=== PATIENT | male | born 1960 | race American Indian/Alaskan Native ===

== ENCOUNTER 2016-04-14 08:36 | Observation (INO) | payer MEDICARE ==
[2016-04-13 09:14] LABS: Hematocrit 37.6 % (35.5-45.6); Hemoglobin 12.3 gm/dl (11.8-15.2); Mean Corpuscular HGB Conc 33 % (32-34); Mean Corpuscular Hemoglobin 30 pg (28-32); Mean Corpuscular Volume 90 fl (84-94); Platelet Count 165 K/mm3 (140-440); Red Blood Count 4.16 M/mm3 (3.65-5.03); Red Cell Distribution Width 16.4 % (13.2-15.2); White Blood Count 7.7 K/mm3 (4.5-11.0)
[2016-04-13 09:24] LABS: INR 0.99 (0.87-1.13)
[2016-04-14] MEDS ORDERED: SUBLIMAZE IV ONE (10:00)
[2016-04-14] MEDS ORDERED: VERSED IV ONE (10:00)
[2016-04-14] MEDS ORDERED: NACL 0.9% 500 ML 500 ML ONE (10:01)
[2016-04-14] MEDS ORDERED: NACL 0.9% 500 ML 500 ML IV SCH (11:00)
--- NOTE | 2016-04-14 11:18 | Procedure Note ---
Date of procedure: 04/14/16 Pre-op diagnosis: Abn. renal fxn. Post-op diagnosis: same Procedure: renal bx. Anesthesia: local Surgeon: SUSAN RITCHIE Estimated blood loss: none Specimen disposition: to lab Condition: stable Disposition: floor
[2016-04-14] MEDS ORDERED: D50W (25GM) IV PRN (14:06)
[2016-04-14] MEDS ORDERED: MILK OF MAGNESIA PO PRN (14:06)
[2016-04-14] MEDS ORDERED: TYLENOL PO PRN (14:06)
[2016-04-14] MEDS ORDERED: ZOFRAN IV PRN (14:06)
--- NOTE | 2016-04-14 14:54 | History and Physical Report ---
History of Present Illness Date of examination: 04/14/16 Date of admission: 04/14/16 14:06 Chief complaint: Patient is status post kidney biopsy History of present illness: 55-year-old Mr. Bauer had a left kidney biopsy and the hospitalist was asked to admit the patient for overnight observation He is awake and alert. Not in any distress and he offers no specific complaints at this time. He denies any pain from the procedure Past History Past Medical History: arthritis (rheumatoid arthritis), diabetes, heart failure , hypertension, renal failure, other (on a clear back pain) Past Surgical History: appendectomy Social history: smoking Family history: CAD, diabetes, hypertension Medications and Allergies Allergies Allergy/AdvReac Type Severity Reaction Status Date / Time ASHISH Inhibitors Allergy Swelling Verified 04/14/16 10:03 Home Medications Medication Instructions Recorded Confirmed Last Taken Type Allopurinol [Allopurinol] 1.5 tab PO DAILY 04/14/16 04/14/16 04/14/16 07:30 History 1.5tab Carvedilol [Coreg] 25 mg PO BID 04/14/16 04/14/16 04/14/16 07:30 History Furosemide [Furosemide] 40 mg PO DAILY 04/14/16 04/14/16 04/14/16 07:30 History 40mg Gabapentin [Gabapentin] 600 mg PO TID 04/14/16 04/14/16 04/14/16 07:30 History 600mg Hydroxychloroquine Sulfate 200 mg PO DAILY 04/14/16 04/14/16 04/14/16 07:30 History [Hydroxychloroquine Sulfate] 200mg Insulin Glargine,Hum.rec.anlog 15 units SQ HS 04/14/16 04/14/16 04/13/16 20:00 History [Lantus Solostar] 15units Insulin Regular, Human [HumuLIN R] 6 - 10 units SQ TID 04/14/16 04/14/16 18:00 History 16units Isosorb Dinit/Hydralazine HCl 1 tab PO TID 04/14/16 04/14/16 04/14/16 07:30 History [Bidil Tablet] 1 tab Metolazone [Metolazone] 10 mg PO BID 04/14/16 04/14/16 04/14/16 07:30 History 10mg glipiZIDE [Glipizide] 10 mg PO BID 04/14/16 04/14/16 04/14/16 07:30 History 10mg Active Meds: Active Medications Acetaminophen (Tylenol) 650 mg PO Q4H PRN PRN Reason: Pain MILD(1-3)/Fever >100.5/GUSTAFSON Bisacodyl (Dulcolax) 10 mg ND QDAY PRN PRN Reason: Constipation unrelieved by MOM Dextrose (D50w (25gm)) 50 ml IV PRN PRN PRN Reason: Hypoglycemia Insulin Aspart (Novolog) 0 units SUB-Q ACHS [facility] PRN Reason: Protocol Magnesium Hydroxide (Milk Of Magnesia) 30 ml PO Q4H PRN PRN Reason: Constipation Ondansetron HCl (Zofran) 4 mg IV Q8H PRN PRN Reason: N/V unrelieved by Reglan Oxycodone/Acetaminophen (Percocet 5/325) 1 tab PO Q6H PRN PRN Reason: Pain, Moderate (4-6) Review of Systems Constitutional: no weight loss, no weight gain, no fever, no chills Cardiovascular: high blood pressure, no chest pain, no orthopnea, no palpitations, no syncope, no lightheadedness, no paroxysmal nocturnal dyspnea Respiratory: no cough, no hemoptysis, no shortness of breath Gastrointestinal: no abdominal pain, no nausea, no vomiting, no diarrhea, no constipation, no melena Genitourinary Male: urinary frequency, no dysuria, no hematuria, no urinary hesitancy, no incontinence Musculoskeletal: low back pain, arthritis Integumentary: no rash, no pruritis Neurological: no seizures, no syncope Psychiatric: no anxiety, no depression Exam - Constitutional Vitals: Temp Pulse Resp BP Pulse Ox 98.1 F 86 20 118/57 94 04/14/16 11:25 04/14/16 14:00 04/14/16 14:00 04/14/16 14:00 04/14/16 14:00 General appearance: Present: no acute distress, obese - EENT Eyes: Present: PERRL, EOM intact ENT: hearing intact, clear oral mucosa, no thrush - Neck Neck: Present: supple, normal ROM. Absent: masses or JVD - Respiratory Respiratory effort: normal Respiratory: bilateral: CTA - Cardiovascular Rhythm: regular Heart Sounds: Present: S1 & S2 - Extremities Extremities: No edema - Abdominal General gastrointestinal: Present: soft, non-tender. Absent: hepatomegaly, splenomegaly - Rectal Rectal Exam: deferred - Integumentary Integumentary: Present: clear - Musculoskeletal Musculoskeletal: strength equal bilaterally - Psychiatric Psychiatric: appropriate mood/affect - Neurologic Neurologic: CNII-XII intact, no focal deficits Results - Labs CBC & Chem 7: 04/13/16 08:56 Labs: Abnormal lab results 04/14/16 Range/Units 12:37 POC Glucose 120 H (70-105) Assessment and Plan - Patient Problems (1) Chronic kidney disease Current Visit: Yes Status: Chronic Qualifiers: Chronic kidney disease stage: unspecified stage Qualified Code(s): N18.9 - Chronic kidney disease, unspecified Plan to address problem: Patient stage of chronic kidney disease is not known Unfortunately there are no lab results in the computer or in the chart Would continue his home medications Nephrology consult on board Offered nephrotoxins (2) Hypertension Current Visit: Yes Status: Chronic Qualifiers: Hypertension type: H Plan to address problem: Continue home medications Pressure is well controlled (3) Type 2 diabetes mellitus Current Visit: Yes Status: Acute Qualifiers: Diabetes mellitus complication status: with kidney complications Diabetes mellitus complication detail: D Diabetic retinopathy severity: D Proliferative retinopathy type: P Diabetes mellitus macular edema: D Diabetes mellitus detention insulin use: with detention use Laterality: L Chronic kidney disease stage: C Plan to address problem: Continue home insulin both basal and regular (4) Rheumatoid arthritis Current Visit: Yes Status: Chronic Qualifiers: Rheumatoid arthritis location: R Rheumatoid factor presence: R Laterality : L Plan to address problem: Continue Plaquenil (5) History of congestive heart failure Current Visit: Yes Status: Chronic Plan to address problem: Details not known at this time Fluid restriction Continue beta enzo and BiDil
[2016-04-14] MEDS ORDERED: DULCOLAX PR PRN (15:00)
[2016-04-14] MEDS ORDERED: PERCOCET 5/325 ONE (15:05)
[2016-04-14] MEDS: PERCOCET 5/325 PO PRN ×2 (15:08→23:12)
[2016-04-14] MEDS: NOVOLOG SUB-Q SCH ×2 (17:57→23:00)
--- NOTE | 2016-04-14 18:16 | Consultation ---
History of Present Illness - Reason for Consult Consult date: 04/14/16 chronic renal failure - History of Present Illness Mr. Bauer is a 55yo admitted for [place] kidney biopsy. He is seen s/p procedure. At present he has no complaints. He denies flank pain. He has not yet voided. Past History Past Medical History: arthritis (rheumatoid arthritis), diabetes, heart failure , hypertension, renal failure Past Surgical History: appendectomy Social history: smoking Family history: CAD, diabetes, hypertension Medications and Allergies Allergies Allergy/AdvReac Type Severity Reaction Status Date / Time ASHISH Inhibitors Allergy Swelling Verified 04/14/16 10:03 Home Medications Medication Instructions Recorded Confirmed Last Taken Type Allopurinol [Allopurinol] 1.5 tab PO DAILY 04/14/16 04/14/16 04/14/16 07:30 History 1.5tab Carvedilol [Coreg] 25 mg PO BID 04/14/16 04/14/16 04/14/16 07:30 History Furosemide [Furosemide] 40 mg PO DAILY 04/14/16 04/14/16 04/14/16 07:30 History 40mg Gabapentin [Gabapentin] 600 mg PO TID 04/14/16 04/14/16 04/14/16 07:30 History 600mg Hydroxychloroquine Sulfate 200 mg PO DAILY 04/14/16 04/14/16 04/14/16 07:30 History [Hydroxychloroquine Sulfate] 200mg Insulin Glargine,Hum.rec.anlog 15 units SQ HS 04/14/16 04/14/16 04/13/16 20:00 History [Lantus Solostar] 15units Insulin Regular, Human [HumuLIN R] 6 - 10 units SQ TID 04/14/16 04/14/16 18:00 History 16units Isosorb Dinit/Hydralazine HCl 1 tab PO TID 04/14/16 04/14/16 04/14/16 07:30 History [Bidil Tablet] 1 tab Metolazone [Metolazone] 10 mg PO BID 04/14/16 04/14/16 04/14/16 07:30 History 10mg glipiZIDE [Glipizide] 10 mg PO BID 04/14/16 04/14/16 04/14/16 07:30 History 10mg Active Meds: Active Medications Acetaminophen (Tylenol) 650 mg PO Q4H PRN PRN Reason: Pain MILD(1-3)/Fever >100.5/GUSTAFSON Allopurinol (Zyloprim) 100 mg PO DAILY [facility] Bisacodyl (Dulcolax) 10 mg CA QDAY PRN PRN Reason: Constipation unrelieved by MOM Carvedilol (Coreg) 25 mg PO BID [facility] Dextrose (D50w (25gm)) 50 ml IV PRN PRN PRN Reason: Hypoglycemia Furosemide (Lasix) 40 mg PO DAILY [facility] Gabapentin (Neurontin) 600 mg PO TID [facility] Glipizide (Glucotrol) 10 mg PO BID [facility] Hydroxychloroquine Sulfate (Plaquenil) 200 mg PO DAILY [facility] Insulin Aspart (Novolog) 0 units SUB-Q ACHS [facility] PRN Reason: Protocol Last Admin: 04/14/16 17:57 Dose: 6 units Insulin Detemir (Levemir) 15 units SUB-Q QHS [facility] Isosorbide Dinitrate/Hydralazine (Bidil 20/37.5mg) 1 each PO TID [facility] Magnesium Hydroxide (Milk Of Magnesia) 30 ml PO Q4H PRN PRN Reason: Constipation Metolazone (Zaroxolyn) 2.5 mg PO BID [facility] Ondansetron HCl (Zofran) 4 mg IV Q8H PRN PRN Reason: N/V unrelieved by Reglan Oxycodone/Acetaminophen (Percocet 5/325) 1 tab PO Q6H PRN PRN Reason: Pain, Moderate (4-6) Last Admin: 04/14/16 15:08 Dose: 1 tab Review of Systems Constitutional: no fever, no chills, no sweats Cardiovascular: no chest pain, no orthopnea, no shortness of breath Respiratory: no cough Gastrointestinal: no nausea, no vomiting, no diarrhea, no constipation Genitourinary Male: no dysuria, no hematuria, no flank pain Integumentary: no rash Neurological: no weakness Exam - Vital Signs Vital signs: Vital Signs Temp Pulse Resp BP Pulse Ox 98.4 F 83 18 125/67 97 04/14/16 09:13 04/14/16 09:13 04/14/16 09:13 04/14/16 09:13 04/14/16 09:13 - General Appearance General appearance: well-developed, well-nourished EENT: ATNC Respiratory: Clear to Ascultation Heart: regular, S1S2 Gastrointestinal: Present: normal. Absent: tenderness, distended Integumentary: no rash Neurologic: no focal deficit Musculoskeletal: Present: other (no flank pain) Psychiatric: mood/affect appropriate, cooperative Results - Lab Results 04/15/16 04:32 04/15/16 04:32 Assessment and Plan Impression: s/p [place] kidney biopsy Hypertension Type II DM Plan: Will obtain stat CBC Tight blood pressure control Avoid anticoagulants/antiplatelet Bladder scan if patient has not voided in next 2-3 hours Avoid nephrotoxins Dose medications for renal functioin
[2016-04-14 20:02] LABS: Basophils % (Auto) 0.7 % (0.0-1.8); Eosinophils % (Auto) 4.6 % (0.0-4.3); Hematocrit 36.5 % (35.5-45.6); Hemoglobin 11.8 gm/dl (11.8-15.2); Mean Corpuscular HGB Conc 32 % (32-34); Mean Corpuscular Hemoglobin 29 pg (28-32); Mean Corpuscular Volume 91 fl (84-94); Platelet Count 160 K/mm3 (140-440); Red Blood Count 4.02 M/mm3 (3.65-5.03); Red Cell Distribution Width 16.2 % (13.2-15.2); White Blood Count 5.7 K/mm3 (4.5-11.0)
[2016-04-14] MEDS ORDERED: METOLAZONE 2.5 MG PO SCH (22:00)
[2016-04-14] MEDS ORDERED: LEVEMIR SUB-Q SCH (22:00)
[2016-04-14] MEDS ORDERED: GLUCOTROL PO SCH (22:00)
[2016-04-14] MEDS ORDERED: NON-FORMULARY (Insulin Glargine,Hum.Rec.Anlog [Lantus Solostar] 15 UNITS) SQ SCH (22:00)
[2016-04-14] MEDS: BIDIL 20/37.5MG PO SCH (23:13)
[2016-04-14] MEDS: ZAROXOLYN PO SCH (23:13)
[2016-04-14] MEDS: NEURONTIN PO SCH (23:15)
[2016-04-14] MEDS: COREG PO SCH (23:21)
[2016-04-15 05:51] LABS: Basophils % (Auto) 0.7 % (0.0-1.8); Hematocrit 36.1 % (35.5-45.6); Hemoglobin 11.8 gm/dl (11.8-15.2); Mean Corpuscular HGB Conc 33 % (32-34); Mean Corpuscular Hemoglobin 29 pg (28-32); Mean Corpuscular Volume 90 fl (84-94); Platelet Count 147 K/mm3 (140-440); Red Cell Distribution Width 16.4 % (13.2-15.2); White Blood Count 6.2 K/mm3 (4.5-11.0)
[2016-04-15 05:55] LABS: Calcium 8.6 mg/dL (8.4-10.2); Chloride 101.1 mmol/L (98-107)
--- NOTE | 2016-04-15 07:35 | Progress Note ---
Assessment and Plan Impression: s/p [place] kidney biopsy Hypertension Type II DM Plan: Hemoglobin is stable. Patient is voiding without difficulty. No hematuria Avoid ASA/NSAIDs Avoid lifting/pushing/pulling objects greater than 10lbs He is advised to return to ED for hematuria, flank pain, difficulty passing urine Stable for d/c from renal standpoint - d/c per hospitalist Subjective Date of service: 04/15/16 Interval history: Patient has no complaints. He denies flank pain, difficulty passing urine, hematuria Objective - Vital Signs Vital signs: Vital Signs - 12hr 04/14/16 04/14/16 04/14/16 21:00 21:15 23:12 Temperature 97.6 F Pulse Rate Pulse Rate [ 85 Right Brachial] Respiratory 18 20 Rate Blood Pressure Blood Pressure 161/80 [Right Arm] O2 Sat by Pulse 96 93 Oximetry 04/14/16 04/14/16 23:13 23:21 Temperature Pulse Rate 88 88 Pulse Rate [ Right Brachial] Respiratory Rate Blood Pressure 137/75 137/75 Blood Pressure [Right Arm] O2 Sat by Pulse Oximetry - General Appearance General appearance: well-developed, well-nourished EENT: ATNC Respiratory: Present: Clear to Ascultation Cardiology: regular, S1S2 Gastrointestinal: normal, no tenderness, no distended, costovertebral (no CVA tenderness) Integumentary: no rash Neurologic: no focal deficit, alert and oriented x3 Psychiatric: mood/affect appropriate, cooperative - Lab 04/15/16 04:32 04/15/16 04:32 Most recent lab results Calcium 8.6 mg/dL (8.4-10.2) 04/15/16 04:32
--- NOTE | 2016-04-15 07:59 | Admit Criteria Form ---
Admission Criteria Documentation: RENAL FAILURE, CHRONIC Clinical Indications for Admission to Inpatient Care (Place 'X' for any and all applicable criteria): Admission is indicated for ANY ONE of the following (1)(2)(3)(4)(5): [ X]I. Inpatient admission required rather than observation care (Use Renal Failure, Chronic: Observation Care Criteria as appropriate) because of ANY ONE of the following: [ ]a) Volume overload or uremic symptoms (eg, clinically significant pulmonary edema, hypertension, pericarditis, acidosis) too severe for, or not responsive (eg, for over 24 hours) to emergency department or observation care dialysis or treatment regimen (11) [ ]b) Hemodynamic instability that is severe or persistent [ ]c) Respiratory distress that is severe or persistent (11) [ ]d) Clinically significant electrolyte abnormality that requires inpatient care (eg,hyperkalemia with severe ECG findings)[B] [ ]e) Supplement O2 or respiratory therapy for over 24hrs that is performable only in acute inpatient setting [ ]f) Continuous IV infusion of anticoagulation, platelet inhibitor, vasoactive, or Antiarrhythmic medication (15), [ ]g) Pulmonary artery catheter monitoring [ ]h) Temporary pacemaker placement [ ]i) Emergent pericardiocentesis [ X]j) Other condition, treatment or monitoring requiring inpatient admission [ ]II. Unexplained syncope [A] [ ]III. Recurrent seizures [ ]IV. Severe infections not treatable in outpatient setting (eg, peritonitis)(9 ) [ ]V. Cardiac arrhythmias of immediate concern [ ]. Encephalopathy [ ]VII.Bleeding abnormalities (eg, platelet dysfunction) with active (eg, gastrointestinal) bleeding Extended stay beyond goal length of stay may be needed for (3)(4)(35)(36): [ ]a) Continuing uremic complications [ ]b) Comorbidities or complications The original [employer] content created by [employer] has been revised. The portions of the content which have been revised are identified through the use of italic text or in bold, and [facility] has neither reviewed nor approved the modified material. All other unmodified content is copyright [employer]. Please see references footnoted in the original [facility] edition 2016 Admission Criteria Met: Yes
[2016-04-15] MEDS ORDERED: GLUCOTROL PO SCH (08:30)
[2016-04-15] MEDS: NOVOLOG SUB-Q SCH ×2 (08:45→13:56)
[2016-04-15] MEDS: NEURONTIN PO SCH (08:46)
[2016-04-15] MEDS: ZAROXOLYN PO SCH (09:16)
[2016-04-15] MEDS: COREG PO SCH (09:17)
[2016-04-15 09:18] VITALS: BP 153/71
[2016-04-15] MEDS: BIDIL 20/37.5MG PO SCH (09:18)
[2016-04-15] MEDS ORDERED: PLAQUENIL PO SCH (10:00)
[2016-04-15] MEDS ORDERED: ZYLOPRIM PO SCH (10:00)
[2016-04-15] MEDS ORDERED: LASIX PO SCH (10:00)
--- NOTE | 2016-04-15 10:14 | Progress Note ---
Hospitalist Physical - Constitutional Vitals: Temp Pulse Resp BP Pulse Ox 97.9 F 76 18 153/71 97 04/15/16 08:00 04/15/16 08:00 04/15/16 08:00 04/15/16 09:18 04/15/16 08:00 General appearance: Present: no acute distress, obese Results - Labs CBC & Chem 7: 04/15/16 04:32 04/15/16 04:32 Labs: Laboratory Last Values WBC 6.2 K/mm3 (4.5-11.0) 04/15/16 04:32 RBC 4.00 M/mm3 (3.65-5.03) 04/15/16 04:32 Hgb 11.8 gm/dl (11.8-15.2) 04/15/16 04:32 Hct 36.1 % (35.5-45.6) 04/15/16 04:32 MCV 90 fl (84-94) 04/15/16 04:32 MCH 29 pg (28-32) 04/15/16 04:32 MCHC 33 % (32-34) 04/15/16 04:32 RDW 16.4 % (13.2-15.2) H 04/15/16 04:32 Plt Count 147 K/mm3 (140-440) 04/15/16 04:32 Lymph % (Auto) 41.3 % (13.4-35.0) H 04/15/16 04:32 [place] % (Auto) 11.6 % (0.0-7.3) H 04/15/16 04:32 Eos % (Auto) 4.0 % (0.0-4.3) 04/15/16 04:32 Baso % (Auto) 0.7 % (0.0-1.8) 04/15/16 04:32 Lymph # 2.6 K/mm3 (1.2-5.4) 04/15/16 04:32 [place]ucks # 0.7 K/mm3 (0.0-0.8) 04/15/16 04:32 Eos # 0.2 K/mm3 (0.0-0.4) 04/15/16 04:32 Baso # 0.0 K/mm3 (0.0-0.1) 04/15/16 04:32 Seg Neutrophils % 42.4 % (40.0-70.0) 04/15/16 04:32 Seg Neutrophils # 2.6 K/mm3 (1.8-7.7) 04/15/16 04:32 PT 13.0 Sec. (12.2-14.9) 04/13/16 08:56 INR 0.99 (0.87-1.13) 04/13/16 08:56 APTT 28.0 Sec. (24.2-36.6) 04/13/16 08:56 Sodium 142 mmol/L (137-145) 04/15/16 04:32 Potassium 4.0 mmol/L (3.6-5.0) 04/15/16 04:32 Chloride 101.1 mmol/L (98-107) 04/15/16 04:32 Carbon Dioxide 25 mmol/L (22-30) 04/15/16 04:32 Anion Gap 20 mmol/L 04/15/16 04:32 BUN 35 mg/dL (9-20) H 04/15/16 04:32 Creatinine 2.5 mg/dL (0.8-1.5) H 04/15/16 04:32 Estimated GFR 32 ml/min 04/15/16 04:32 BUN/Creatinine Ratio 14.00 % 04/15/16 04:32 Glucose 169 mg/dL (75-100) H 04/15/16 04:32 POC Glucose 178 (70-105) H 04/15/16 06:39 Calcium 8.6 mg/dL (8.4-10.2) 04/15/16 04:32 Blood Type AB POSITIVE 04/13/16 08:56 Antibody Screen Negative 04/13/16 08:56
--- NOTE | 2016-04-15 13:06 | Discharge Summary ---
Providers - Providers Date of Admission: 04/14/16 14:06 Date of discharge: 04/15/16 Attending physician: HEATHER HATHAWAY 04/14/16 14:06 Consult to Physician [CONS] Routine Consulting Provider: HEATHER HATHAWAY Reason For Exam: ckd Place consult to:: dr. hathaway Notified:: answering machine Phone number called:: Was contact made?: No Time called:: 16:57 Primary care physician: SUSAN PIERCE MD Hospitalization Hospital course: 55-year-old Mr. Bauer had a left kidney biopsy and the hospitalist was asked to admit the patient for overnight observation He is awake and alert. Not in any distress and he offers no specific complaints at this time. He denies any pain from the procedure Patient was admitted to the hospital and evaluated by nephrology. Patient had kidney biopsy done. Nephrology stated that patient hemoglobin was stable and patient was voiding without difficulty. Patient had no hematuria and was advised to return to the emergency department for hematuria, flank pain, difficulty passing urine. Patient was advised to avoid aspirin and non- steroidal anti-inflammatory area patient was cleared by renal and stable for discharge patient was told to follow with primary care physician in one week. Disposition: DISCHARGED TO HOME OR SELFCARE Core Measure Documentation - Palliative Care Palliative Care/ Comfort Measures: Not Applicable - Core Measures Any of the following diagnoses?: none Exam - Constitutional Vitals: Temp Pulse Resp BP Pulse Ox 97.9 F 76 18 153/71 100 04/15/16 08:00 04/15/16 08:00 04/15/16 08:00 04/15/16 09:18 04/15/16 10:00 General appearance: Present: no acute distress - EENT Eyes: Present: PERRL, EOM intact ENT: hearing intact, clear oral mucosa - Neck Neck: Present: supple, normal ROM - Respiratory Respiratory effort: normal Respiratory: bilateral: CTA - Cardiovascular Rhythm: regular Heart Sounds: Present: S1 & S2 - Extremities Extremities: no ischemia, No edema - Abdominal General gastrointestinal: Present: soft, non-tender, non-distended, normal bowel sounds - Musculoskeletal Musculoskeletal: strength equal bilaterally - Psychiatric Psychiatric: appropriate mood/affect, intact judgment & insight - Neurologic Neurologic: CNII-XII intact, moves all extremities Plan Activity: advance as tolerated Weight Bearing Status: Weight Bear as Tolerated Diet: low fat, low cholesterol, low salt Follow up with: SUSAN PIERCE MD [Primary Care Provider] - 7 Days Prescriptions: Allopurinol [Zyloprim] 100 mg PO DAILY #30 tablet Carvedilol [Coreg] 25 mg PO BID #60 tablet Gabapentin [Neurontin] 600 mg PO TID #90 capsule glipiZIDE [Glucotrol] 10 mg PO BIDDIAB #60 tablet Hydroxychloroquine [Plaquenil] 200 mg PO DAILY #30 tablet Insulin Glargine,Hum.rec.anlog [Lantus Solostar] 15 units SQ HS #30 insuln.pen Insulin Regular, Human [HumuLIN R] 6 - 10 units SQ TID #30 units Isosorb Dinit/Hydralazine [Bidil 20/37.5MG] 1 each PO TID #90 tablet Metolazone 10 mg PO BID #60 tablet
--- NOTE | 2016-04-18 08:13 | Cat Scan Report ---
CT GUIDED BIOPSY OF THE LEFT KIDNEY. HISTORY: Abnormal renal functions. PROCEDURE: The patient's skin surface overlying the left flank was prepped and draped using sterile technique. Local anesthetic was injected in the skin. Using CT guidance, a 17-gauge sheath needle was advanced into the lower pole cortex of the left kidney. Two passes were made using an 18-gauge biopsy gun. Adequate tissue cores were obtained. Intravenous conscious sedation was used. Independent cardiorespiratory monitoring was performed by the outpatient procedure nurse for 17 minutes, supervised by me. The patient tolerated the procedure well and was sent to the outpatient procedure unit and placed on complete bed rest for 8 hours.
== END 2016-04-15 13:45 | disposition home or self-care (01) ==
LOC: OPU 08:36 → 3A 14:06
PROVIDERS: ADMIT Internal Medicine; ATTEND Internal Medicine
DX: E11.22 Type 2 diabetes mellitus with diabetic chronic kidney disease (principal); I13.0 Hypertensive heart and chronic kidney disease with heart failure and stage 1 through stage 4 chronic kidney disease, or unspecified chronic kidney disease; N18.9 Chronic kidney disease, unspecified; I50.9 Heart failure, unspecified; M06.9 Rheumatoid arthritis, unspecified; Z83.3 Family history of diabetes mellitus; Z82.49 Family history of ischemic heart disease and other diseases of the circulatory system
CPT/HCPCS: 36415; 50200; 77012; 80048; 82962; 85025; 85027; 85610; 85730; 86850; 86900; 86901; 96372; 96374; G0378; J2250; J3010; J7040; J1815; J1818

== ENCOUNTER 2016-07-26 11:30 | Observation (INO) | payer MEDICARE ==
[2016-07-26] MEDS ORDERED: ANCEF/STERILE WATER 2 GM/20 ML 2 GM/20 ML SYRINGE IV NR (12:00)
[2016-07-26] MEDS ORDERED: NACL 0.45% 1000 ML 1,000 ML IV SCH (12:00)
[2016-07-26 12:29] LABS: Basophils % (Auto) 1.4 % (0.0-1.8); Eosinophils % (Auto) 2.8 % (0.0-4.3); Hematocrit 38.3 % (35.5-45.6); Hemoglobin 12.7 gm/dl (11.8-15.2); Mean Corpuscular HGB Conc 33 % (32-34); Mean Corpuscular Hemoglobin 29 pg (28-32); Mean Corpuscular Volume 88 fl (84-94); Platelet Count 133 K/mm3 (140-440); Red Blood Count 4.37 M/mm3 (3.65-5.03); Red Cell Distribution Width 14.7 % (13.2-15.2); White Blood Count 5.3 K/mm3 (4.5-11.0)
[2016-07-26 12:37] LABS: INR 0.99 (0.87-1.13)
[2016-07-26 12:38] LABS: Partial Thromboplastin Time 26.2 Sec. (24.2-36.6)
[2016-07-26] MEDS ORDERED: NACL 0.9% 1,000 ML, VANCOMYCIN VIAL 1,000 MG IR ONE (12:51)
[2016-07-26 12:59] LABS: Albumin 3.9 g/dL (3.9-5); Albumin/Globulin Ratio 1.4 %; Bilirubin,Total 0.6 mg/dL (0.1-1.2); Calcium 8.9 mg/dL (8.4-10.2); Chloride 104.6 mmol/L (98-107); Potassium 3.9 mmol/L (3.6-5.0); Total Protein 6.7 g/dL (6.3-8.2)
[2016-07-26] MEDS ORDERED: ANCEF/STERILE WATER 2 GM/20 ML 2 GM/20 ML SYRINGE IV ONE (14:57)
[2016-07-26] MEDS ORDERED: NACL 0.9% 500 ML IR ONE (14:58)
[2016-07-26] MEDS ORDERED: MARCAINE 0.5% 60 ML INFILTRATI ONE (14:58)
[2016-07-26] MEDS ORDERED: XYLOCAINE 1% 20 mL ONE (14:58)
[2016-07-26] MEDS: VERSED ONE ×3 (15:20→15:55)
[2016-07-26] MEDS: SUBLIMAZE ONE ×4 (15:20→16:55)
[2016-07-26] MEDS ORDERED: VERSED ONE (15:38)
[2016-07-26] MEDS ORDERED: SUBLIMAZE ONE ×2 (15:38→16:56)
[2016-07-26] MEDS ORDERED: BENADRYL ONE (15:55)
--- NOTE | 2016-07-26 17:17 | Admit Criteria Form ---
Admission Criteria Documentation: TELEMETRY CARE Telemetry Admission Guidelines (Place 'X' for any and all applicable criteria): Admission to telemetry [A] may be indicated for ANY ONE of the following(1)(2)(3 )(4)(5): [ ]I. Cardiac disease, including ANY ONE of the following (9)(10)(11)(12)(13 ): [ ]a) Postacute SD [ ]b) Low-risk patients with ST-segment elevation SD who have undergone successful percutaneous coronary intervention [ ]c) Unstable angina [ ]d) Suspected SD (until it is ruled out) [ ]e) Post cardiac surgery (first 48 to 72 hours unless complications occur) [ ]f) Acute arrhythmias (including significant tachycardia or bradycardia) [B] [ ]g) Firing of an implantable cardioverter defibrillator [C] [ ]h) Suspected pacemaker or implantable cardioverter defibrillator malfunction (10) [ ]i) New administration or adjustment of an antiarrhythmic drug [D ] [ ]j) Child admitted for acute congestive heart failure [ ]j) Long QT syndrome [ ]k) Advanced heart block (eg, second-degree Mobitz type II, third- degree heart block) [ ]l) Acute myocarditis or pericarditis [ ]m) Short-term (ambulatory or inpatient) monitoring after a cardiac procedure as indicated by ANY ONE of the following [E]: [ ]i) Electrophysiologic studies [ ]ii) Percutaneous coronary intervention with stent placement [ ]iii) Pacemaker placement with cardiac conduction defect [ ]iv) Implantable cardiac defibrillator placement [ ]II. Drug overdose or poisoning with substance that causes arrhythmias or QT prolongation (eg, phenothiazines, sympathomimetic agents, cyclic antidepressants, digitalis, antiarrhythmic drugs)(15) [X ]III. Short-term (ambulatory or inpatient) monitoring after therapeutic or diagnostic procedure requiring conscious sedation or anesthesia (eg, endoscopy, elective cardioversion) [ ]IV. Acute cerebrovascular even[F](18) [ ]V. Massive blood transfusion (eg, at least 10 units of packed red blood cells in 24 hours) [ ]. Variceal bleeding after endoscopy, sclerotherapy, or IV vasopressin [ ]VII. Uncorrected electrolyte abnormalities associated with an increased risk of dangerous arrhythmia [G]; examples include [ ]a) Hyperkalemia with attributable ECG changes [ ]b) Potassium greater than 6.5 mmol/L (mEq/L) in a patient without history of chronic renal disease [ ]c) Prolonged QT attributed to hypokalemia, hypomagnesemia, or hypocalcemia [ ]VIII.Unexplained syncope or other neurologic event suspected of being due to arrhythmia due to a finding that increases risk; examples include(19)(20)(21): [ ]a) High-risk ECG findings (eg, bifascicular block, bradycardia, abnormal QT interval, ventricular pre- excitation) [ ]b) History of previous syncope due to arrhythmia [ ]c) Abnormal ventricular function (eg, reduced ejection fraction ) [ ]d) Exertional or supine syncope [ ]e) Concerning syncope characteristics (eg, sudden loss of consciousness without prodrome) [ ]f) Family history of sudden [ ]g) Use of arrhythmogenic medication [ ]h) Suspected cardiac ischemia [ ]i) Known channelopathy (eg, long QT syndrome, Brugada syndrome, or catecholaminergic paroxysmal ventricular tachycardia) [ ]j) Known structural heart disease (eg, hypertrophic cardiomyopathy , severe valvular disease) [ ]k) Palpitations preceding syncope The original [employer] content created by [employer] has been revised. The portions of the content which have been revised are identified through the use of italic text or in bold, and [employer] has neither reviewed nor approved the modified material. All other unmodified content is copyright [employer]. Please see references footnoted in the original [employer] edition 2016 Admission Criteria Met: Yes
[2016-07-26] MEDS ORDERED: NORCO 5/325 PO PRN (17:27)
[2016-07-26] MEDS: ANCEF/NS 1 GM/50 ML 1 GM/50 ML BAG IV SCH (23:40)
--- NOTE | 2016-07-27 09:20 | Short Stay Summary ---
Short Stay Documentation Date of service: 07/27/16 - History H&P: obtained from office - Allergies and Medications Current Medications: Allergies ASHISH Inhibitors Allergy (Verified 04/14/16 10:03) Swelling Home Medications Medication Instructions Recorded Confirmed Last Taken Type Isosorb Dinit/Hydralazine HCl 1 tab PO TID 04/14/16 07/26/16 07/25/16 History [Bidil Tablet] Allopurinol [Zyloprim] 100 mg PO DAILY #30 tablet 04/15/16 07/26/16 07/25/16 Rx Carvedilol [Coreg] 25 mg PO BID #60 tablet 04/15/16 07/26/16 07/25/16 Rx Gabapentin [Neurontin] 600 mg PO TID #90 capsule 04/15/16 07/26/16 07/25/16 Rx Hydroxychloroquine [Plaquenil] 200 mg PO DAILY #30 tablet 04/15/16 07/26/1607/06 Rx Insulin Glargine,Hum.rec.anlog 15 units SQ HS #30 insuln.pen 04/15/16 07/26/16 07/25/16 Rx [Lantus Solostar] Insulin Regular, Human [HumuLIN R] 6 - 10 units SQ TID #30 units 04/15/1607/25/16 Rx Metolazone 10 mg PO BID #60 tablet 04/15/16 07/26/16 07/25/16 Rx glipiZIDE [Glucotrol] 10 mg PO BIDDIAB #60 tablet 04/15/16 07/26/16 07/25/16 Rx Aspirin [Aspirin BABY CHEW TAB] 81 mg PO QDAY #30 tab.chew 04/27/16 07/26/1607/06 Rx Furosemide [Lasix TAB] 40 mg PO QDAY #30 tablet 04/27/16 07/26/16 07/25/16 Rx Torsemide [Demadex] 20 mg PO DAILY 07/26/16 07/26/16 07/25/16 History Active Medications Acetaminophen/Hydrocodone Bitart ([place] 5/325) 1 each PO Q6H PRN PRN Reason: Pain, Moderate (4-6) Last Admin: 07/26/16 22:10 Dose: 1 each Sodium Chloride (Nacl 0.45% 1000 Ml) 1,000 mls @ 50 mls/hr IV DIRECT SUMMER - Brief post op/procedure progress note Date of procedure: 07/26/16 Pre-op diagnosis: cardiomyopathy Procedure: Single chamber ICD implantation - Hospital course Hospital course: The patient is a 55 year old male with a history of cardiomyopathy who presented as an outpatient on 07/26/16 and underwent successful single lead ICD implantation by Dr. Danielle ([employer]). He was monitored on telemetry overnight and remained hemodynamically stable. Device interrogation this morning revealed normal device function. Patient will be discharged home today in stable condition. Follow up with Dr. Danielle in the [place] office for an incision check on 08/05/16 at 8:30 am. - Disposition Condition at discharge: Stable - Discharge Diagnoses (1) S/P implantation of automatic cardioverter/defibrillator (AICD) Status: Acute (2) Cardiomyopathy Status: Chronic Qualifiers: Cardiomyopathy type: C (3) Hypertension Status: Chronic Qualifiers: Hypertension type: H (4) Diabetes Status: Chronic Qualifiers: Diabetes mellitus type: D Diabetes mellitus complication status: D Diabetes mellitus complication detail: D Diabetic retinopathy severity: D Proliferative retinopathy type: P Diabetes mellitus macular edema: D Diabetes mellitus intermediate insulin use: D Laterality: L Chronic kidney disease stage: C (5) Chronic kidney disease Status: Chronic Qualifiers: Chronic kidney disease stage: unspecified stage Qualified Code(s): N18.9 - Chronic kidney disease, unspecified Short Stay Discharge Plan Activity: advance as tolerated Weight Bearing Status: Weight Bear as Tolerated Diet: low salt, diabetic Wound: keep clean and dry Special Instructions: other (do not lift left arm over the level of the shoulder , wear sling at night. ) Follow up with: SUSAN PIERCE MD [Primary Care Provider] - 7 Days LUKAS DANIELLE MD [Staff Physician] - 08/05/16 8:30 am Prescriptions: HYDROcodone/APAP 5-325 [[place] 5-325 mg TAB] 1 each PO Q6H PRN #10 tablet PRN Reason: Pain, Moderate (4-6)
--- NOTE | 2016-07-27 09:34 | XRay Report ---
AP chest x-ray. History: Postop pacemaker placement. Findings: A unipolar pacemaker is identified in satisfactory position with no evidence of pneumothorax. The heart is borderline in size with normal pulmonary vascularity. The lungs are clear. There is mild eventration of the right hemidiaphragm. Impression: No acute findings.
[2016-07-27] MEDS: ANCEF/NS 1 GM/50 ML 1 GM/50 ML BAG IV SCH (09:51)
[2016-07-27 12:15] VITALS: BP 167/62
== END 2016-07-27 12:18 | disposition home or self-care (01) ==
LOC: OPU 11:30 → CATH 11:30 → INTOOBSV 14:13 → 4A 14:13
PROVIDERS: ATTEND Internal Medicine Cardiovascular Disease
DX: I42.0 Dilated cardiomyopathy (principal); E11.22 Type 2 diabetes mellitus with diabetic chronic kidney disease; I12.9 Hypertensive chronic kidney disease with stage 1 through stage 4 chronic kidney disease, or unspecified chronic kidney disease; N18.9 Chronic kidney disease, unspecified
CPT/HCPCS: 33249; 36415; 71010; 80053; 82962; 85025; 85610; 85730; 93005; 93010; 96365; 96375; C1722; C1892; C1895; G0378; J0690; J1200; J2250; J3010; J3370

== ENCOUNTER 2016-09-13 19:28 | Emergency (ER) | payer OTHER, MEDICARE ==
[2016-09-13] MEDS ORDERED: TYLENOL ONE (19:47)
[2016-09-13] MEDS ORDERED: TYLENOL PO ONE (19:54)
[2016-09-13 20:25] VITALS: BP 128/66
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
[2016-09-13] MEDS ORDERED: FLEXERIL PO ONE (22:10)
[2016-09-13] MEDS ORDERED: TORADOL IM ONE (22:10)
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
== END 2016-09-13 22:54 | disposition home or self-care (01) ==
LOC: ED 19:28
DX: M25.512 Pain in left shoulder (principal); M25.522 Pain in left elbow; I10 Essential (primary) hypertension; I25.2 Old myocardial infarction; I50.9 Heart failure, unspecified; E11.9 Type 2 diabetes mellitus without complications; M19.90 Unspecified osteoarthritis, unspecified site; Z79.4 Long term (current) use of insulin; Z88.8 Allergy status to other drugs, medicaments and biological substances; V49.49XA Driver injured in collision with other motor vehicles in traffic accident, initial encounter; Y92.488 Other paved roadways as the place of occurrence of the external cause; Y93.89 Activity, other specified; Y99.8 Other external cause status
CPT/HCPCS: 73030; 73080; 96372; 99283; J1885